=== PATIENT | male | born 1950 | race Caucasian/White ===

== ENCOUNTER 2016-06-20 02:03 | Emergency (ER) | payer OTHER ==
[2016-06-20] MEDS ORDERED: HALOPERIDOL LACT 5 MG/ML INJ ONE (02:20)
[2016-06-20] MEDS ORDERED: ONDANSETRON 4 MG/2 ML VIAL IVP ONE (02:22)
[2016-06-20] MEDS ORDERED: NS 1,000 ML IV ONE (02:22)
[2016-06-20] MEDS ORDERED: HALOPERIDOL LACT 5 MG/ML INJ IVP ONE (02:23)
[2016-06-20] MEDS ORDERED: ONDANSETRON 4 MG/2 ML VIAL ONE (02:23)
--- NOTE | 2016-06-20 02:25 | EDPHY ---
H & P Stated Complaint: vomiting since friday Time Seen by Provider: 06/20/16 02:20 HPI/ROS: CHIEF COMPLAINT: Cyclic vomiting HISTORY OF PRESENT ILLNESS: The patient is a 65-year-old man who comes to the emergency depart with his complaining cyclic vomiting. He states that he has been vomiting for the last 5 days. He is now dry heaving. No diarrhea. No fever. No drug or cannabis use. He states that this is typical for 1 of his episodes. His states that he typically gets Haldol or Compazine or Phenergan to "knock him out" and then he typically feels better. He denies abdominal pain. He has been told that this is caused by anxiety. He is followed by Dr. Araiza from GI. REVIEW OF SYSTEMS: Constitutional: denies: chills, fever, recent illness, recent injury EENTM: denies: blurred vision, double vision, nose congestion Respiratory: denies: cough, shortness of breath Cardiac: denies: chest pain, irregular heart rate, lightheadedness, palpitations Gastrointestinal/Abdominal: See HPI Genitourinary: denies: dysuria, frequency, hematuria, pain Musculoskeletal: denies: joint pain, muscle pain Skin: denies: lesions, rash, jaundice, bruising Neurological: denies: headache, numbness, paresthesia, tingling, dizziness, weakness Hematologic/Lymphatic: denies: blood clots, easy bleeding, easy bruising Immunologic/allergic: denies: HIV/AIDS, transplant EXAM: GENERAL: Well-appearing, well-nourished and in no acute distress. HEAD: Atraumatic, normocephalic. EYES: Pupils equal round and reactive to light, extraocular movements intact, sclera anicteric, conjunctiva are normal. ENT: TMs normal, nares patent, oropharynx clear without exudates. Moist mucous membranes. NECK: Normal range of motion, supple without lymphadenopathy or JVD. LUNGS: Breath sounds clear to auscultation bilaterally and equal. No wheezes rales or rhonchi. HEART: Regular rate and rhythm without murmurs, rubs or gallops. ABDOMEN: Soft, nontender, normoactive bowel sounds. No guarding, no rebound. No masses appreciated. BACK: No CVA tenderness, no spinal tenderness, step-offs or deformities EXTREMITIES: Normal range of motion, no pitting or edema. No clubbing or cyanosis. NEUROLOGICAL: Cranial nerves II through XII grossly intact. Normal speech, normal gait. 5/5 strength, normal movement in all extremities, normal sensation PSYCH: Normal mood, normal affect. SKIN: Warm, dry, normal turgor, no visible rashes or lesions. Source: Patient Exam Limitations: No limitations - Personal History Current Tetanus/Diphtheria Vaccine: Yes Current Tetanus Diphtheria and Acellular Pertussis (TDAP): Yes Tetanus Vaccine Date: 2011 - Medical/Surgical History Hx Asthma: Yes Hx Chronic Respiratory Disease: No Hx Diabetes: No Hx Cardiac Disease: No Hx Renal Disease: No Hx Cirrhosis: No Hx Alcoholism: No Hx HIV/AIDS: No Hx Splenectomy or Spleen Trauma: No Other PMH: cyclic vomiting syndrome; BPH; asthma, bladder CA, - Family History Significant Family History: No pertinent family hx - Social History Smoking Status: Former smoker Alcohol Use: Sober Drug Use: None Constitutional: Initial Vital Signs Temperature (C) 36.9 C 06/20/16 02:05 Heart Rate 89 06/20/16 02:05 Respiratory Rate 18 06/20/16 02:05 Blood Pressure 129/99 H 06/20/16 02:05 O2 Sat (%) 94 06/20/16 02:05 O2 Delivery Mode Room Air O2 (L/minute) 2 Allergies/Adverse Reactions: No Known Allergies Allergy (Unverified 06/20/16 02:08) Home Medications: Medication Instructions Recorded ATIVAN 06/02/13 Aciphex 06/02/13 Nortriptyline HCl 06/02/13 PROMETHAZINE HCL 06/02/13 Ventolin 06/02/13 Zofran 06/02/13 Herbals/Supplements -Info Only 01/24/16 Medical Decision Making ED Course/Re-evaluation: 3:00 a.m. the patient is feeling much better. He is no longer retching. He would like to "camp out" a little longer and receive IV fluids. Abdominal exam remains benign 6:20 a.m. the patient is awake and alert. His vomiting is gone. He is not red just in the last 4 hours. He is tolerating p. o.. We will discharge this time. He has prescriptions at home. Differential Diagnosis: Partial list of the Differential diagnosis considered include but were not limited to; cyclic vomiting, gastritis, anxiety, food poisoning and although unlikely based on the history and physical exam, I also considered appendicitis , diverticulitis, obstruction, volvulus. I discussed these differential diagnoses and the plan with the patient as well as the usual and expected course. The patient understands that the diagnosis is provisional and that in medicine we are not always correct and that further workup is often warranted. Usual and customary warnings were given. All of the patient's questions were answered. The patient was instructed to return to the emergency department should the symptoms at all worsen or return, otherwise to followup with the physician as we discussed. - Data Points Medications Given: Discontinued Medications Al Hydroxide/Mg Hydroxide (Maalox Susp) 30 ml PO ONCE ONE Stop: 06/20/16 02:35 Last Admin: 06/20/16 07:01 Dose: Not Given Diphenhydramine HCl (Benadryl Injection) 25 mg IVP EDNOW ONE Stop: 06/20/16 02:25 Last Admin: 06/20/16 02:53 Dose: 25 mg Haloperidol Lactate (Haldol Injection) 5 mg IVP EDNOW ONE Stop: 06/20/16 02:24 Last Admin: 06/20/16 02:53 Dose: 5 mg Hyoscyamine Sulfate (Levsin, Hyomax-Sl) 0.25 mg PO ONCE ONE Stop: 06/20/16 02:35 Last Admin: 06/20/16 07:01 Dose: Not Given Sodium Chloride (Ns) 1,000 mls @ 0 mls/hr IV ONCE ONE PRN Reason: Wide Open Stop: 06/20/16 02:23 Last Admin: 06/20/16 02:53 Dose: 1,000 mls Lidocaine (Lidocaine 2% Viscous) 15 ml PO ONCE ONE Stop: 06/20/16 02:35 Last Admin: 06/20/16 07:01 Dose: Not Given Ondansetron HCl (Zofran) 4 mg IVP EDNOW ONE Stop: 06/20/16 02:23 Last Admin: 06/20/16 02:53 Dose: 4 mg Departure - Departure Disposition: Home, Routine, Self-Care Clinical Impression: Cyclic vomiting syndrome Qualifiers: Vomiting Intractability: non-intractable Nausea presence: with nausea Qualified Code(s): G43.A0 - Cyclical vomiting, not intractable Condition: Fair Instructions: Acute Nausea and Vomiting (ED) Referrals: Heath Felix MD [Primary Care Provider] - As per Instructions
[2016-06-20] MEDS ORDERED: MAG HYDROX/AL HYDROX/SIMETH 30 ML UDCUP PO ONE (02:34)
[2016-06-20] MEDS ORDERED: HYOSCYAMINE SULFATE 0.125 MG TAB PO ONE (02:34)
[2016-06-20] MEDS ORDERED: LIDOCAINE 2% VISCOUS 15 ML UDCUP PO ONE (02:34)
[2016-06-20 06:35] VITALS: BP 112/67; PULSE 85; RESP 18; TEMP 98.2; O2SAT 91
== END 2016-06-20 06:38 | disposition home or self-care (01) ==
LOC: EEVIPCON 02:03
DX: G43.A0 Cyclical vomiting, in migraine, not intractable (principal); J45.909 Unspecified asthma, uncomplicated; Z85.51 Personal history of malignant neoplasm of bladder; Z87.891 Personal history of nicotine dependence
CPT/HCPCS: 96374; J1200; J2405

== ENCOUNTER 2016-06-22 08:34 | Emergency (ER) | payer OTHER ==
[2016-06-22] MEDS ORDERED: ONDANSETRON 4 MG/2 ML VIAL IVP ONE (09:15)
[2016-06-22] MEDS ORDERED: NS 1,000 ML IV ONE ×2 (09:15→09:31)
[2016-06-22] MEDS ORDERED: HALOPERIDOL LACT 5 MG/ML INJ IVP ONE (09:36)
--- NOTE | 2016-06-22 09:45 | EDPHY ---
H & P Smoking Status: Former smoker Time Seen by Provider: 06/22/16 09:16 HPI/ROS: CHIEF COMPLAINT: Vomiting HISTORY OF PRESENT ILLNESS: 65-year-old male presents to the emergency department with multiple episodes of vomiting. The patient has a history of cyclical vomiting syndrome. His symptoms began 1 week ago. He was seen in the emergency department 2 days ago on and had similar symptoms. He was treated with IV Benadryl and Haldol and was feeling much better. He was able to rest and then he woke up with similar symptoms and has been vomiting all night long last night. The patient states that he has had a history of cyclical vomiting syndrome since 2004. He has seen Gastroenterology for this in the past. He had a CT scan of the abdomen and pelvis in December of 2015. He denies abdominal pain. He states that he becomes so nauseous that he feels like he is developing abdominal pain. No bowel movement for 1 week. He denies chest pain or difficulty breathing. Denies headache. REVIEW OF SYSTEMS: Constitutional: No fever, no chills. Eyes: No double or blurry vision. ENT: No sore throat. Respiratory: No cough, no shortness of breath. Cardiac: No chest pain. Gastrointestinal: As above. No diarrhea. Genitourinary: No dysuria. Musculoskeletal: No neck or back pain. Skin: No rashes. Neurological: No headache. (Melissa Bach) Past Medical/Surgical History: Cyclical vomiting syndrome (Melissa Bach) Social History: (Melissa Bach) Physical Exam: General Appearance: Alert, no distress. 167/111, afebrile, at bedside. Eyes: Pupils equal and round. Extraocular motions are all intact. ENT: Mouth: Mucous membranes dry. Respiratory: No wheezing, rhonchi, or rales, lungs are clear to auscultation. Cardiovascular: Regular rate and rhythm. Gastrointestinal: Abdomen is soft and nontender, no masses, no rebound or guarding, bowel sounds normal. No CVA tenderness bilaterally. Neurological: Alert and oriented x 3, cranial nerves II through XII grossly intact Skin: Warm and dry, no rashes. Musculoskeletal: Nontender to palpate along the cervical, thoracic or lumbar spine. Neck is supple. Extremities: Full range of motion and no peripheral edema. Psychiatric: Patient is oriented X 3, there is no agitation. (Melissa Bach) Constitutional: Initial Vital Signs Temperature (C) 36.7 C 06/22/16 08:39 Heart Rate 80 06/22/16 08:39 Respiratory Rate 16 06/22/16 08:39 Blood Pressure 167/111 H 06/22/16 08:39 O2 Sat (%) 97 06/22/16 08:39 O2 Delivery Mode Room Air O2 (L/minute) 2 Allergies/Adverse Reactions: No Known Allergies Allergy (Verified 06/22/16 08:39) Home Medications: Medication Instructions Recorded ATIVAN 06/02/13 Aciphex 06/02/13 Nortriptyline HCl 06/02/13 PROMETHAZINE HCL 06/02/13 Ventolin 06/02/13 Zofran 06/02/13 Herbals/Supplements -Info Only 01/24/16 Medical Decision Making ED Course/Re-evaluation: 65-year-old male with a known history of cyclical vomiting syndrome presents to the emergency department with recurring vomiting. He was seen in the emergency department 2 days ago with similar symptoms. Laboratory studies were unremarkable. The patient was given 5 mg of IV Haldol and 25 mg of IV Benadryl. He was feeling much better. He was tolerating p.o. fluids and is comfortable being discharged home. He has his own Ativan, Zofran , and Phenergan suppositories. 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 I do not think this patient has an acute abdomen. He really has no abdominal pain it is just nausea. (Melissa Bach) Differential Diagnosis: Including but not limited to cyclical vomiting syndrome, dehydration, bowel obstruction, acute appendicitis, pancreatitis (Melissa Bach) Other Provider: The patient wasevaluatedand managed by themidlevel provider. Idiscussed the patient's presentation and course with thephysicianassistantor nurse practitionerand agree with theevaluation. My co-signature indicates that I have reviewed this chart and I agree with the findings and plan of care as documented. I am the secondary supervisingphysician. (Christina Rangel) - Data Points Laboratory Results: Laboratory Results 06/22/16 10:05 06/22/16 10:05 Medications Given: Discontinued Medications Diphenhydramine HCl (Benadryl Injection) 25 mg IVP EDNOW ONE Stop: 06/22/16 09:37 Last Admin: 06/22/16 09:45 Dose: 25 mg Haloperidol Lactate (Haldol Injection) 5 mg IVP EDNOW ONE Stop: 06/22/16 09:37 Last Admin: 06/22/16 09:45 Dose: 5 mg Sodium Chloride (Ns) 1,000 mls @ 0 mls/hr IV EDNOW ONE PRN Reason: Wide Open Stop: 06/22/16 09:16 Last Admin: 06/22/16 09:19 Dose: 1,000 mls Sodium Chloride (Ns) 1,000 mls @ 0 mls/hr IV ONCE ONE PRN Reason: Wide Open Stop: 06/22/16 09:32 Last Admin: 06/22/16 09:50 Dose: 1,000 mls Ondansetron HCl (Zofran) 4 mg IVP EDNOW ONE Stop: 06/22/16 09:16 Last Admin: 06/22/16 09:19 Dose: 4 mg Departure - Departure Disposition: Home, Routine, Self-Care Clinical Impression: Cyclical vomiting syndrome Condition: Good Instructions: Acute Nausea and Vomiting (ED) Additional Instructions: Clear liquids and slowly advance diet as tolerated. Continue Ativan as needed or Zofran or Phenergan for nausea. Keep scheduled appointment with your filing machine operator. Referrals: Janay Araiza MD [Medical Doctor] - As per Instructions (Mobility Architect)
[2016-06-22 10:14] LABS: % IMMATURE GRANULYOCYTES 0.3 % (0.0-1.1); ABSOLUTE IMMATURE GRANULOCYTES 0.02 10^3/uL (0.00-0.10); ADD DIFF? NO; ADD MORPH? NO; ADD SCAN? NO; ATYPICAL LYMPHOCYTE FLAG 0 (0-99); FRAGMENT RBC FLAG 0 (0-99); HEMATOCRIT 38.2 % (40.0-51.0); HEMOGLOBIN 13.4 g/dL (13.7-17.5); LEFT SHIFT FLG 0 (0-99); LIPEMIA HEMOLYSIS FLAG 90 (0-99); MEAN CELL HEMOGLOBIN 29.6 pg (27.9-34.1); MEAN CELL HEMOGLOBIN CONCENTR. 35.1 g/dL (32.4-36.7); MEAN CELL VOLUME 84.5 fL (81.5-99.8); MEAN PLATELET VOLUME 10.1 fL (8.7-11.7); PLATELET CLUMPS FLAG 10 (0-99); PLATELET COUNT 258 10^3/uL (150-400); RED BLOOD CELL COUNT 4.52 10^6/uL (4.40-6.38); RED CELL DISTRIBUTION WIDTH 12.5 % (11.5-15.2)
[2016-06-22 10:28] LABS: ALANINE AMINOTRANSFERASE 38 IU/L (21-72); ALBUMIN 3.6 g/dL (3.5-5.0); ALKALINE PHOSPHATASE 66 IU/L (38-126); ANION GAP 7 mEq/L (8-16); ASPARTATE AMINOTRANSFERASE 22 IU/L (17-59); BILIRUBIN,TOTAL 0.9 mg/dL (0.1-1.4); BILIRUBIN-CONJUGATED 0.4 mg/dL (0.0-0.5); BILIRUBIN-UNCONJUGATED 0.5 mg/dL (0.0-1.1); CALCIUM 8.2 mg/dL (8.5-10.4); CARBON DIOXIDE 27 mEq/l (22-31); CHLORIDE 99 mEq/L (97-110); CREATININE 0.8 mg/dL (0.7-1.3); GLOMERULAR FILTRATION RATE > 60; GLUCOSE 101 mg/dL (70-100); POTASSIUM 3.6 mEq/L (3.5-5.2); SODIUM 133 mEq/L (134-144); TOTAL PROTEIN 5.8 g/dL (6.3-8.2)
[2016-06-22 12:30] VITALS: BP 110/65; PULSE 73; RESP 18; TEMP 98.4; O2SAT 95
== END 2016-06-22 12:29 | disposition home or self-care (01) ==
DX: G43.A0 Cyclical vomiting, in migraine, not intractable (principal)
CPT/HCPCS: 96374; J1200; J2405

== ENCOUNTER 2018-05-07 03:25 | Emergency (ER) | payer OTHER ==
[2018-05-07 03:35] VITALS: BP 139/85
--- NOTE | 2018-05-07 03:45 | EDPHY ---
H & P Stated Complaint: L lower back pain Time Seen by Provider: 05/07/18 03:39 HPI/ROS: Chief Complaint: Left flank and back pain HPI: 67-year-old male with a history of bladder cancer status post bladder reconstruction years ago is presenting with 2 days of left lower back. Pain is constant. It is worse with movement. He does not recall specific injury. No history of chronic back pain. He thought it might be a muscle problem but is concerned that might be a kidney stone. No history of kidney stones. Pain is a 5/10 No nausea or vomiting. No fevers or chills. No hematuria. ROS: 10 systems were reviewed and were negative except those elements noted in the HPI. PMH: Bladder cancer Social History: No smoking, no alcohol, no recreational drug use Family History: non-contributory Physical Exam: Gen: Awake, Alert, No Distress HEENT: Nose: no rhinorrhea Eyes: PERRLA, EOMI Mouth: Moist mucosa Neck: Supple, no JVD Chest: nontender, lungs clear to auscultation Heart: S1, S2 normal, no murmur Abd: Soft, non-tender, no guarding Back: no CVA tenderness, no midline tenderness Ext: no edema, non-tender Skin: no rash Neuro: CN II-XII intact, Sensation grossly intact, Strength 5/5 in bilateral upper and lower extremities - Personal History Current Tetanus Diphtheria and Acellular Pertussis (TDAP): Yes Tetanus Vaccine Date: 2011 - Medical/Surgical History Hx Asthma: Yes Hx Chronic Respiratory Disease: No Hx Diabetes: No Hx Cardiac Disease: No Hx Renal Disease: No Hx Cirrhosis: No Hx Alcoholism: No Hx HIV/AIDS: No Hx Splenectomy or Spleen Trauma: No Other PMH: cyclic vomiting syndrome; BPH; asthma, bladder CA-neobladder - Social History Smoking Status: Former smoker Constitutional: Initial Vital Signs Temperature (C) 36.6 C 05/07/18 03:33 Heart Rate 75 05/07/18 03:33 Respiratory Rate 16 05/07/18 03:33 Blood Pressure 139/85 H 05/07/18 03:33 O2 Sat (%) 92 05/07/18 03:33 O2 Delivery Mode Room Air Allergies/Adverse Reactions: No Known Allergies Allergy (Verified 05/07/18 03:33) Home Medications: Medication Instructions Recorded ATIVAN 06/02/13 Aciphex 06/02/13 Nortriptyline HCl 06/02/13 PROMETHAZINE HCL 06/02/13 Ventolin 06/02/13 Zofran 06/02/13 Herbals/Supplements -Info Only 01/24/16 Medical Decision Making ED Course/Re-evaluation: Urinalysis is negative. Patient's pain is not severe. We discussed at length that I cannot entirely rule out a kidney stone based on a normal urinalysis but it does decrease the likelihood. I have explained that the only way to comply firm it would be to obtain a CT scan. He would like to defer at this time. He says his pain is not this severe. Will follow up with primary care physician, return for any concerns. There is no evidence of acute neurologic or intra- abdominal process at this time. No infectious process. I believe this is an appropriate plan. - Data Points Laboratory Results: 05/07/18 03:45 Urine Color YELLOW Urine Appearance MODERATELY TURBID Urine pH 9.0 H (5.0-7.5) Ur Specific [place] 1.009 (1.002-1.030) Urine Protein NEGATIVE (NEGATIVE) Urine Ketones NEGATIVE (NEGATIVE) Urine Blood NEGATIVE (NEGATIVE) Urine Nitrate NEGATIVE (NEGATIVE) Urine Bilirubin NEGATIVE (NEGATIVE) Urine Urobilinogen NEGATIVE EU EU (0.2-1.0) Ur Leukocyte Esterase NEGATIVE (NEGATIVE) Urine Glucose NEGATIVE (NEGATIVE) Departure - Departure Disposition: Home, Routine, Self-Care Clinical Impression: Back pain Condition: Good Instructions: Lower Back Exercises (ED), Back Pain (ED) Additional Instructions: Take ibuprofen, 600 mg, 3 times a day. You may also take acetaminophen, 1000 mg every 6 hours. Apply ice for 15 minutes of every hour while awake. Make sure to remain active. Did do not lay in bed or sit in a chair for long periods. Avoid heavy lifting or bending at work until cleared by your physician. Please see the attached back exercise instructions. Follow up with your primary care physician in 2-3 days for further evaluation. Referrals: Heath Felix MD [Primary Care Provider] - As per Instructions
== END 2018-05-07 04:23 | disposition home or self-care (01) ==
DX: M54.5 Low back pain (principal); Z85.51 Personal history of malignant neoplasm of bladder; Z87.891 Personal history of nicotine dependence